=== PATIENT | female | born 1960 | race Caucasian/White ===

== ENCOUNTER → 2017-01-24 | Day surgery (SDC) | payer OTHER ==
[~2017-01-24] MED LIST: PROPOFOL 500 MG/50 ML BTL IV ONE
--- NOTE | 2017-01-24 09:48 | GIPROC ---
[facility] [address] [facility], [address] COLONOSCOPY PROCEDURE REPORT EXAM DATE: 01/24/2017 PATIENT NAME: Marissa Tamayo MR #: [id number] BIRTHDATE: 1960 ENDOSCOPIST: Pato Chaidez MD ORDER #: [id number] COPRA PROCESSOR: Mahendra Gupta RN STATUS: outpatient INDICATIONS: The patient is a 56 yr old female here for a colonoscopy due to average risk patient for colon cancer PROCEDURE PERFORMED: Colonoscopy, screening MEDICATIONS: None and Per Anesthesia. PREP QUALITY: good ESTIMATED BLOOD LOSS: None CONSENT: The patient understands the risks and benefits of the procedure and understands that these risks include, but are not limited to: sedation, allergic reaction, infection, perforation and/or bleeding. Alternative means of evaluation and treatment include, among others: physical exam, x-rays, and/or surgical intervention. The patient elects to proceed with this endoscopic procedure. medical equipment was checked for proper function. Hand hygiene and appropriate measures for infection prevention was taken. After the risks, benefits and alternatives of the procedure were thoroughly explained, Informed consent was verified, confirmed and timeout was successfully executed by the treatment team. A digital exam revealed no abnormalities of the rectum The EC-[id number] ([id number]) endoscope was introduced through the anus and advanced to the cecum, which was identified by both the appendix and ileocecal valve. The instrument was then slowly withdrawn as the colon was fully examined. COLON FINDINGS: Mild diverticulosis was noted in the descending colon. The colon mucosa was otherwise normal. Retroflexed views revealed internal hemorrhoids and Retroflexed views revealed small internal hemorrhoids The scope was then completely withdrawn from the patient and the procedure terminated. PROCEDURE WITHDRAWAL TIME:8.8minutes ADVERSE EVENTS: There were no complications. IMPRESSIONS: 1. Mild diverticulosis was noted in the descending colon 2. The colon mucosa was otherwise normal 3. Retroflexed views revealed internal hemorrhoids 4. Retroflexed views revealed small internal hemorrhoids 5. Revealed no abnormalities of the rectum RECOMMENDATIONS: 1. Yearly hemoccult 2. High fiber diet 3. Follow-up: GI Clinic PRN RECALL: Return 10 years Colonoscopy Pato Chaidez MD eSigned: Pato Chaidez MD 01/24/2017 9:47 AM cc: Yaquelin Romero
== END | disposition home or self-care (01) ==
LOC: ESDC 07:48
PROVIDERS: ATTEND Internal Medicine Gastroenterology
DX: Z12.11 Encounter for screening for malignant neoplasm of colon (principal); K57.90 Diverticulosis of intestine, part unspecified, without perforation or abscess without bleeding; K64.8 Other hemorrhoids